=== PATIENT | male | born 1990 | race Caucasian/White ===

== ENCOUNTER → 2019-01-06 | Outpatient (CLI) | payer BC ==
[2019-01-06] MEDS: IOHEXOL 300MG/ML 150 ML BTL (10:07)
[2019-01-06] MEDS: SOD CHLORIDE 0.9% 100 ML (10:07)
== END | disposition home or self-care (01) ==
LOC: C/S 08:37
DX: R10.9 Unspecified abdominal pain (principal); E27.9 Disorder of adrenal gland, unspecified
CPT/HCPCS: 74178